=== PATIENT | male | born 1965 | race Caucasian/White ===

== ENCOUNTER 2016-11-07 21:10 | Emergency (ER) | payer OTHER ==
[~2016-11-07] VITALS: Ht 188 cm; Wt 126.0 kg
[2016-11-07 21:18] VITALS: BP 143/92
[2016-11-07] MEDS ORDERED: HYDROmorphone 1 MG/ML, 1ML IVPush PRN (22:00)
[2016-11-07] MEDS ORDERED: SODIUM CHLORIDE 0.9% 1,000ML IVBOLUS ONE (22:00)
[2016-11-07] MEDS ORDERED: SODIUM CHLORIDE FLUSH 10ML SYR IVF ONE (22:00)
[2016-11-07] MEDS ORDERED: ONDANSETRON 2MG/ML, 2ML IVPush ONE (22:00)
[2016-11-07] MEDS ORDERED: ONDANSETRON 2MG/ML, 2ML ONE (22:17)
[2016-11-07] MEDS ORDERED: HYDROmorphone 1 MG/ML, 1ML ONE (22:18)
[2016-11-07 22:41] LABS: ASPARTATE AMINO TRANSFERASE 42 U/L (15-37); BLOOD UREA NITROGEN 13 mg/dL (7-18)
[2016-11-08] MEDS ORDERED: POTASSIUM CHLORIDE 20 MEQ TAB.ER.PRT ONE (00:25)
[2016-11-08] MEDS ORDERED: POTASSIUM CHLORIDE 20 MEQ TAB.ER.PRT PO ONE (00:30)
== END 2016-11-08 00:36 | disposition home or self-care (01) ==
LOC: ED 23:59
DX: R10.84 Generalized abdominal pain (principal); E87.6 Hypokalemia; R19.7 Diarrhea, unspecified; Z87.891 Personal history of nicotine dependence
CPT/HCPCS: 36415; 74176; 80053; 81001; 83690; 85025; 96361; 96374; 96375; 99285; J1170; J2405; J7030

== ENCOUNTER 2016-11-11 18:48 | Emergency (ER) | payer OTHER ==
[~2016-11-11] VITALS: Ht 188 cm; Wt 122.7 kg
[2016-11-11 19:03] VITALS: BP 133/94
[2016-11-11] MEDS ORDERED: KETOROLAC 30 MG/1 ML ONE (19:27)
[2016-11-11] MEDS ORDERED: HYDROcodone/APAP 5/325 TABLET ONE (19:27)
[2016-11-11] MEDS ORDERED: KETOROLAC 30 MG/1 ML IM ONE (19:30)
[2016-11-11] MEDS ORDERED: HYDROcodone/APAP 5/325 TABLET PO ONE (19:30)
[2016-11-11 19:53] LABS: PATH.CAST-FLAG NOT PRESENT; SPERM-FLAG NOT PRESENT; SRC-FLAG NOT PRESENT; XTAL-FLAG NOT PRESENT; YLC-FLAG NOT PRESENT
== END 2016-11-11 20:17 | disposition home or self-care (01) ==
LOC: ED 20:11
DX: N30.01 Acute cystitis with hematuria (principal); M54.5 Low back pain; M77.9 Enthesopathy, unspecified
CPT/HCPCS: 81001; 87086; 96372; 99284; J1885

== ENCOUNTER 2017-06-15 07:46 | Emergency (ER) | payer OTHER ==
[~2017-06-15] VITALS: Ht 185.4 cm; Wt 126.2 kg
[2017-06-15 09:47] LABS: BLOOD UREA NITROGEN 11 mg/dL (7-18)
[2017-06-15 09:50] LABS: ASPARTATE AMINO TRANSFERASE 62 U/L (15-37)
[2017-06-15 11:17] VITALS: BP 136/78
[2017-06-15 11:20] LABS: HEMATOCRIT 44.2 % (39.2-51.8); HEMOGLOBIN 15.3 g/dL (13.7-18.0); WHITE BLOOD COUNT 7.7 x10^3/uL (3.4-10)
== END 2017-06-15 12:18 | disposition home or self-care (01) ==
LOC: ED 08:23
DX: S39.011A Strain of muscle, fascia and tendon of abdomen, initial encounter (principal); R74.0 Nonspecific elevation of levels of transaminase and lactic acid dehydrogenase [LDH]; E11.9 Type 2 diabetes mellitus without complications; J20.9 Acute bronchitis, unspecified
CPT/HCPCS: 36415; 74022; 76700; 80053; 81003; 83690; 85025; 99285

== ENCOUNTER 2018-12-29 10:13 | Emergency (ER) | payer BC, OTHER ==
[~2018-12-29] VITALS: Ht 188 cm; Wt 119.9 kg
[2018-12-29] MEDS ORDERED: KETOROLAC 30 MG/1 ML IM ONE (10:30)
[2018-12-29] MEDS ORDERED: KETOROLAC 30 MG/1 ML ONE (10:39)
[2018-12-29 11:41] VITALS: BP 134/80
== END 2018-12-29 11:44 | disposition home or self-care (01) ==
LOC: ED 11:10
DX: M25.512 Pain in left shoulder (principal); M77.8 Other enthesopathies, not elsewhere classified
CPT/HCPCS: 73030; 96372; 99283; J1885

== ENCOUNTER 2020-12-31 18:38 | Emergency (ER) | payer BC, OTHER ==
[~2020-12-31] VITALS: Ht 188 cm; Wt 116.2 kg
[2020-12-31 20:15] LABS: BASOPHILS % (AUTO) 1 % (0-1); EOSINOPHILS % (AUTO) 3 % (1-7); LYMPHOCYTES % (AUTO) 25 % (22-44); MEAN CORPUSCULAR HEMOGLOBIN 31.8 pg (27.5-34.5); MEAN CORPUSCULAR HGB CONC 34.8 g/dL (33.2-36.2); MEAN PLATELET VOLUME 8.5 fL (7.4-10.4); MONOCYTES % (AUTO) 4 % (2-9); NEUTROPHILS % (AUTO) 67 % (42-75); PLATELET COUNT 184 x10^3/uL (130-400); RED BLOOD COUNT 5.15 x10^6/uL (4.38-5.82); RED CELL DISTRIBUTION WIDTH 12.7 % (9.4-14.8)
[2020-12-31 20:28] LABS: ALANINE AMINOTRANSFERASE 31 U/L (12-78); ALBUMIN 3.6 g/dL (3.4-5.0); ANION GAP 3 mmol/L (5-15); CALCIUM 8.6 mg/dL (8.5-10.1); CHLORIDE 107 mmol/L (98-107); CREATININE 0.96 mg/dL (0.7-1.3)
[2020-12-31 20:30] LABS: ALKALINE PHOSPHATASE 104 U/L (45-117); BILIRUBIN,TOTAL 0.5 mg/dL (0.2-1.0); TOTAL PROTEIN 7.4 g/dL (6.4-8.2)
[2020-12-31] MEDS ORDERED: OMNIPAQUE 350 MG/ML, 100ML BOTTLE ONE (21:00)
[2020-12-31] MEDS ORDERED: HYDROcodone/APAP 5/325 TABLET ONE (21:25)
[2020-12-31] MEDS ORDERED: HYDROcodone/APAP 5/325 TABLET PO ONE (21:30)
[2020-12-31 22:57] VITALS: BP 155/83
== END 2020-12-31 23:26 | disposition home or self-care (01) ==
LOC: ED 23:00
DX: K92.1 Melena (principal); R10.31 Right lower quadrant pain; R10.11 Right upper quadrant pain; F17.210 Nicotine dependence, cigarettes, uncomplicated; E11.9 Type 2 diabetes mellitus without complications
CPT/HCPCS: 36415; 74177; 80053; 85025; 99285; 99406; Q9967